=== PATIENT | female | born 1965 | race Caucasian/White ===

== ENCOUNTER 2018-07-28 19:28 | Emergency (ER) | payer OTHER ==
--- NOTE | 2018-07-28 20:37 | ED Physician Documentation ---
PD HPI HEENT - Stated complaint Stated Complaint: TOOTH PX - Chief complaint Chief Complaint: Heent - History obtained from History obtained from: Patient - History of Present Illness Timing - onset: Yesterday Timing - details: Gradual onset, Constant, Waxing and waning Pain level now: 10 Location: Tooth Improves: Nothing Worsens: Everything Recently seen: Clinic (dentist) - Additional information Additional information: saw dentist yesterday for "broken tooth" (per patient), xrays performed and patient says these showed some fluid collection near this or an adjacent tooth and she is scheduled to see [facility]FS next month. Patient says no prescriptions were given. Patient presents to ED due to gradually worsening pain lower left two teeth. 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 - Present Medications Home Medications: Ambulatory Orders Medication Instructions Recorded Confirmed Baclofen [Lioresal] 20 mg PO DAILY 07/31/12 07/31/12 Diclofenac Sodium [Voltaren] 100 gm TP Q4-6H PRN 07/31/12 07/31/12 Fluticasone [Flonase] 1 sprays ESPERANZA DAILY 07/31/12 07/31/12 Furosemide [Lasix] 20 mg PO DAILY 07/31/12 07/31/12 Gabapentin 3,600 gm MC DAILY 07/31/12 07/31/12 HYDROcod/ACETAM 5/325 [Vicodin 1 - 2 ea PO Q6H PRN #15 tablet 07/31/12 5/325] Hydrochlorothiazide 25 gm MC DAILY 07/31/12 07/31/12 Levothyroxine [Synthroid] 112 mcg PO QDAC 07/31/12 07/31/12 Loratadine [Claritin] 07/31/12 07/31/12 Methocarbamol 1,000 mg PO QID 07/31/12 07/31/12 Montelukast [Singulair] 20 DAILY 07/31/12 07/31/12 predniSONE [Deltasone] 10 mg PO DAILY #26 07/31/12 traMADol [Ultram] 100 mg PO Q6-8H PRN 07/31/12 07/31/12 Clindamycin HCl [Clindamycin 300MG 300 mg PO Q6H #28 capsule 07/28/18 CAP] Oxycodone HCl/Acetaminophen 1 - 2 each PO Q6H PRN #14 tablet 07/28/18 [Percocet 5-325 mg Tablet] - Allergies Allergies/Adverse Reactions: Allergies Allergy/AdvReac Type Severity Reaction Status Date / Time No Known Drug Allergies Allergy Verified 07/31/12 22:54 - Social History Does the pt smoke?: No Smoking Status: Never smoker Does the pt drink ETOH?: No Does the pt have substance abuse?: No - Immunizations Immunizations are current?: Yes - POLST Patient has POLST: No PD ED PE NORMAL - Vitals Vital signs reviewed: Yes - General General: Alert and oriented X 3, Well developed/nourished, Other (appears uncomfortable) - HEENT HEENT: Other (no facial swelling) PD ED PE EXPANDED - HEENT HEENT: Other (temporary filling (appears to be cavit) in #18; TTP #18 and #19 without obvious swelling or erythema. there is generalized but marked gum recession) Results - Vitals Vitals: Vital Signs - 24 hr 07/28/18 19:31 Temperature 36.6 C Heart Rate 74 Respiratory 16 Rate Blood Pressure 172/99 H O2 Saturation 100 Oxygen O2 Source Room air PD MEDICAL DECISION MAKING - ED course Complexity details: considered differential, d/w patient Departure - Departure Disposition: 01 Home, Self Care Clinical Impression: Tooth pain Condition: Good Health Concerns: Pain control, possible dental infection Plan of Treatment: prescriptions for analgesics and antibiotics. Care Goals: Control of pain, elimination of possible infection Assessment: Given medications in emergency department (analgesics, antibiotics) and will follow-up with dentist; instructed to call in the morning to seek earliest available appointment Instructions: ED Tooth Pain Follow-Up: Calvin Layton DDS [Provider Admit Priv/Credential] - CALVIN LAYTON [Physician No Access] - Prescriptions: Clindamycin HCl [Clindamycin 300MG CAP] 300 mg PO Q6H #28 capsule Oxycodone HCl/Acetaminophen [Percocet 5-325 mg Tablet] 1 - 2 each PO Q6H PRN #14 tablet PRN Reason: pain Comments: Do not take any acetaminophen (Tylenol) or acetaminophen-containing products within 6 hours of taking Percocet: Percocet contains acetaminophen and taking too much acetaminophen can cause serious and irreversible liver damage
[2018-07-28] MEDS ORDERED: oxyCODONE/ACET 5/325 Prepack 4 PO STA (20:46)
[2018-07-28] MEDS ORDERED: CLINDAMYCIN 150 MG CAPSULE PO STA (20:46)
[2018-07-28 21:04] VITALS: BP 146/90
== END 2018-07-28 20:59 | disposition home or self-care (01) ==
LOC: ED 19:28
DX: K08.89 Other specified disorders of teeth and supporting structures (principal); E03.9 Hypothyroidism, unspecified; M19.90 Unspecified osteoarthritis, unspecified site; Z96.649 Presence of unspecified artificial hip joint; Z96.659 Presence of unspecified artificial knee joint
CPT/HCPCS: 99283; A9270

== ENCOUNTER 2020-08-30 11:06 | Outpatient (CLI) | payer OTHER ==
[2020-08-30 11:55] VITALS: BP 123/85
--- NOTE | 2020-08-30 11:55 | SLEEP CARE CONSULTATION ---
Information from patient questionnaire entered by Peri Perry. I have reviewed and concur with the information entered by Peri Perry. This document represents the service I personally performed and the decisions made by , Mariella Osorio ARNP. History of Present Illness Service Date and Time: 08/30/2020 1106 Reason for Visit: New patient, Previously diagnosed sleep apnea (Severe AHI 55, 2000) Chief Complaint: reports: Unrefreshed sleep, Snoring (when on her back mostly), Excessive daytime sleepiness, Fatigue Date of Onset: since 1999 Usual bedtime: 10:30 - 11 pm Time it takes to fall asleep: moments Snores at night: Yes (so I've been told) Observed to quit breathing while asleep: No Sleeps alone due to snoring: No Number of times waking at night: 0-1 Reasons for waking at night: reports: Other (dog having to go out). denies: Choking, Snoring, Gasping for air Toss, Turn, or Twitch while sleeping: No Recalls having dreams: No (never have) Usually gets out of bed at: 4 am Feels refreshed in the morning: No Morning headache: Yes (sometimes(allergies), resolves quickly to lingering) Sleepy or fatigued during the day: Yes Ever fallen asleep while driving: Yes (drowsy driving, no accidents) Takes day naps: No (tries but has too much to do) Dreams during day naps: No Prior sleep studies: Yes Year and Where: 2000 - [facility] Additional HPI information: I had the pleasure of seeing JEF PRITCHETT today regarding the possibility of her having a sleep disorder. Her current complaints are snoring, excessive dayti me sleepiness, fatigue and unrefreshed sleep. She was previously diagnosed with severe sleep apnea with an AHI of 55 when 5 months and over 400 lbs in 2000. She was on a CPAP only through her pregnancies and has not been on one since 2004. She has lost weight and had many joint surgeries. She has low iron deficiency and needs infusions, has rheumatoid arthritis (JAZMIN positive) and has hypothyroidism. She does not get to REM sleep and has not all her life. She has been told she is snoring more. She has allergies and thinks she has a deviated septum. 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 Patient is and lives in [place]. Have you smoked in the past 12 months: No Alcohol use: No Caffeine use: Yes Caffeine amount and frequency: 2 - 16oz per day Family History Family history of sleep disordered breathing: Yes Family Hx Sleep Apnea: Father: Snoring, Sleep apnea - Treated Allergies and Home Medications Drug allergies reviewed: Yes (NKDA) Home medication list reviewed: Yes Allergy and home medication list: Gabapentin Synthroid Estrogen HTCZ Lasix Meloxicam Claritin B12 Vitamin D Flonase, prn Voltaren cream, prn Voltaren tab twice a day Zomig, prn Review of Systems Weight gain over past 5 years: 5-10 Cardiovascular: reports: other (Edema - body wide 2001). denies: high blood pressure Gastrointestinal: denies: heartburn Ear/Nose/Throat: reports: nasal congestion, sinus problems (chronic sineusotus), tonsillectomy (/Adnoidectomy), wisdom teeth removed Endocrine: reports: thyroid disease (hypo), history of goiter, sluggishness (tired), too hot or cold (cold) Musculoskeletal: reports: joint pain (moderate to severe, early onset osteo- arthritis, Rheumotaid postive), neck pain, back pain, joint swelling, other (bilateral hip replacements) Immunologic: reports: sneezing, allergies to food or environment (environment) Physical Exam Blood Pressure: 123/85 Cuff size: wrist Heart Rate: 64 O2 Saturation: 98 Height: 5 ft 8.5 in Weight: 200 lb Body Mass Index: 29.9 BMI Classification: Overweight Heart: regular rate and rhythm Lungs: clear bilaterally Impression and Plan 1. Suspected Obstructive Sleep Apnea-Hypopnea Syndrome, as previously diagnosed with severe obstructive sleep apnea in 2000 and as suggested by a continuing history of irregular snoring, morning headache, unrefreshed sleep, and excessive daytime sleepiness. Patient has lost over 200 pounds since her last study was completed. She does have a history of hypothyroidism, anemia, edema and rheumatoid arthritis. I recommend proceeding to polysomnography to confirm the diagnosis and to assess severity. If the patient has significant sleep disordered breathing, a manual CPAP titration study will also be performed to find the optimal treatment pressure. I informed the patient of what the sleep studies involve and after some discussion, obtained agreement to proceed. The pathophysiology of obstructive sleep apnea-hypopnea syndrome was discussed with the patient and health risks of cardiovascular and cerebrovascular disease if not treated. 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 Patient agreed to plan. * Schedule polysomnography +- manual CPAP titration study and return in 1-2 weeks after the study to discuss result and initiate therapy. * Avoid long distance driving or driving when feeling sleepy. * Avoid sedative and muscle relaxant around bedtime. * Attempt to lose weight. * Review instructions provided by trained office staff on how to prepare for the sleep study. * Return for follow-up after sleep study completed. Counseling Topics: Weight loss health impact Visit Type: In Office Time Spent with Patient (minutes): 30 Provider Statement: I spent 100% of the Face to Face Visit with the patient with greater than 50% spent counseling the patient and coordination of care.
== END 2020-08-30 11:07 | disposition home or self-care (01) ==
LOC: SC 11:06
PROVIDERS: ATTEND Nurse Practitioner Family
DX: G47.33 Obstructive sleep apnea (adult) (pediatric) (principal)
CPT/HCPCS: 99203; 99212

== ENCOUNTER 2020-11-02 12:34 | Outpatient (CLI) | payer OTHER | END 2020-11-02 12:35 | disposition home or self-care (01) | LOC: SC 12:34 | PROVIDERS: ATTEND Nurse Practitioner Family | DX: Z53.9 Procedure and treatment not carried out, unspecified reason (principal) ==